=== PATIENT | female | born 1980 | race Hispanic/Latino ===

== ENCOUNTER 2016-09-24 22:04 | Emergency (ER) | payer SELFPAY ==
[2016-09-24 23:08] LABS: Hemoglobin 11.2 g/dL (12.0-16.0); Mean Corpuscular HGB CONC 32.5 g/dL (32.0-36.0); Mean Corpuscular Hemoglobin 27.9 pg (27.0-31.0); Mean Platelet Volume 8.1 fL (7.4-10.4); Platelet Count 387 thou/uL (130-400); RBC Distribution Width 17.1 % (11.5-14.5); Red Blood Cell (RBC) Count 4.01 mill/uL (4.20-5.40); White Blood Cell (WBC) Count 20.8 thou/uL (4.8-10.8)
[2016-09-24 23:15] LABS: Acetaminophen Less than 6.0 mcg/mL (10.0-30.0); Alcohol Less than 10 mg/dL (Less than 10); BHCG - Serum Negative (NEGATIVE); CK (CPK) 111 U/L (29-168); Pregs Control Background? CLEAR/WHITE (CLR/WHITE); Pregs Control Bar Appear? YES (CONTROL BAR); Salicylate Less than 8.0 mg/dL (15.0-30.0)
[2016-09-24 23:18] LABS: ALT (SGPT) 87 U/L (8-55); AST (SGOT) 54 U/L (5-34); Albumin 3.7 g/dL (3.5-5.0); Alkaline Phosphatase 120 U/L (40-150); Anion Gap 18 mmol/L (10-20); BUN (Urea Nitrogen) 39 mg/dL (7.0-18.7); Bilirubin, Total 0.5 mg/dL (0.2-1.2); CKMB 6.4 ng/mL (0-6.6); Calc. Creatinine Clearance 0 mL/min (70-130); Calcium 8.4 mg/dL (7.8-10.44); Carbon Dioxide 19 mmol/L (22-29); Chloride 106 mmol/L (98-107); Estimated GFR-MDRD 8; Globulin 3.9 g/dL (2.4-3.5); Glucose 121 mg/dL (70-105); Lipase 24 U/L (8-78); Potassium 4.5 mmol/L (3.5-5.1); Protein, Total 7.6 g/dL (6.0-8.3); Sodium 138 mmol/L (136-145)
[2016-09-24] MEDS ORDERED: Piperacillin/Tazobactam 3.375 GM VIAL ONE (23:24)
[2016-09-24 23:25] LABS: Anisocytosis SLIGHT = 6-15 cells (100X) (0-5/hpf); Lymphocytes 16 % (21-51); MDiff Complete? YES; Monocytes 7 % (0-10); Neutrophil 77 % (42-75); PLT Morphology Comment Appears Adequate
[2016-09-24] MEDS ORDERED: Sodium Chloride 0.9% 200 ML ONE (23:26)
[2016-09-24 23:27] LABS: Troponin I 1.637 ng/mL (< 0.028)
--- NOTE | 2016-09-25 07:30 | RAD ---
PORTABLE CHEST: Date: 09/24/16 An AP portable film at 2247 hours is compared with the 12/13/15 study from [facility]. FINDINGS: The heart is larger today than before. There is no clear pulmonary edema or large pleural effusion. The apparent widening of the mediastinum is probably due to the portable technique involved. An IJ l ine has been placed on the right, but the tip curves into the left subclavian vein. No pneumothorax seen. IMPRESSION: 1. Right IJ line, tip curves into right subclavian vein. 2. Cardiomegaly. There is no clear congestive change, though the upper lobe vessels are arguably a little more prominent than the lower. POS: HOME
== END 2016-09-24 23:45 | disposition short-term general hospital (02) ==
LOC: BURERS 22:04
DX: A41.9 Sepsis, unspecified organism (principal); R65.20 Severe sepsis without septic shock; N17.9 Acute kidney failure, unspecified; R09.02 Hypoxemia; I21.4 Non-ST elevation (NSTEMI) myocardial infarction; K21.9 Gastro-esophageal reflux disease without esophagitis; E03.9 Hypothyroidism, unspecified; I10 Essential (primary) hypertension; J45.909 Unspecified asthma, uncomplicated; F41.9 Anxiety disorder, unspecified; F32.9 Major depressive disorder, single episode, unspecified; E66.9 Obesity, unspecified; Z87.891 Personal history of nicotine dependence; Z79.899 Other long term (current) drug therapy
CPT/HCPCS: 36416; 36556; 51702; 71010; 80053; 80307; 82140; 82553; 83605; 83690; 84484; 84703; 85025; 87040; 87077; 87149; 87186; 93005; 94760; 96361; 96374; 96375; J2543; J3370; J7050